=== PATIENT | male | born 1980 | race Caucasian/White ===

== ENCOUNTER 2018-11-16 14:17 | Emergency (ER) | payer OTHER, MEDICAID, SELFPAY ==
[2018-11-16 14:25] VITALS: BP 129/81; PULSE 103; RESP 20; TEMP 36.7; O2SAT 100; BMI 22.6
[2018-11-16 15:26] VITALS: BP 113/80; PULSE 80; RESP 18; O2SAT 99
--- NOTE | 2018-11-16 15:37 | DI.US.S_ITS ---
PROCEDURE: US SCROTUM INDICATIONS: Right testicular pain radiating to the right groin. TECHNIQUE: Real-time scanning was performed of the scrotum and testicles, with image documentation. Color and pulse Doppler interrogation was performed of both testicles. COMPARISON: None. FINDINGS: Right: Testicle is normal in size at 4.9 x 2.3 x 2.8 cm, and homogenous in echotexture. Epididymis is normal in overall size and morphology with mildly heterogeneous echotexture and subtle increased vascularity suggesting mild epididymitis. No varicoceles. Small hydrocele. Overlying scrotal skin is normal in thickness. Left: Testicle is normal in size at 3.1 x 3.1 x 2.2 cm, and homogeneous in echotexture. Epididymis is normal in overall size and morphology. No varicoceles. Small hydrocele Overlying scrotal skin is normal in thickness. Doppler: Color and pulse Doppler demonstrate normal and symmetric arterial flow in both testicles. No right inguinal hernia is identified. Small inguinal lymph nodes are present in the right groin Measuring up to 6 mm in short axis. The lymph nodes demonstrate normal nephrology and fatty hilum. IMPRESSION: 1. Question mild right epididymitis. Recommend clinical correlation. 2. No evidence for testicular torsion. 3. Microlithiasis of the testicles which is a resector for testicular cancer. Recommend routine self examination. 4. No right inguinal hernias. 5. Prominent but still normal-sized right inguinal lymph nodes are noted, most likely reactive. Dictated by: Ryan Cunningham M.D. on 11/16/2018 at 16:16 Approved by: Ryan Cunningham M.D. on 11/16/2018 at 16:23
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
[2018-11-16] MEDS: KETOROLAC 60 MG/2 ML VIAL IM (16:07)
[2018-11-16 17:45] VITALS: BP 122/73; PULSE 72; RESP 18; O2SAT 98
[2018-11-16 17:53] VITALS: TEMP 37.7
[2018-11-16] MEDS: CEFTRIAXONE INJ (18:12)
[2018-11-16] MEDS: LIDOCAINE 1% INJ (18:12)
[2018-11-16] MEDS: AZITHROMYCIN 250 MG TABLET 1000 MG PO (18:12)
[2018-11-16 18:48] VITALS: BP 111/75; PULSE 70; RESP 18; TEMP 36.5; O2SAT 98
== END 2018-11-16 18:53 | disposition home or self-care (01) ==
PROVIDERS: Emergency Provider Emergency Medicine; PCP Family Medicine
DX: N45.1 Epididymitis (principal)
CPT/HCPCS: 76870; 81003; 96365; 96372; 99283; 99284; J0696; J1885

== ENCOUNTER → 2019-01-16 16:24 | Outpatient (CLI) | payer OTHER, MEDICAID, SELFPAY ==
--- NOTE | 2019-01-16 16:28 | DI.MRI.S_ITS ---
PROCEDURE: MR LUMBAR SPINE WO CON INDICATIONS: TESTICULAR PAIN RADICULAR PAIN FROM SPINE TECHNIQUE: Noncontrast sagittal T1 spin echo and T2 fast echo, sagittal STIR, axial T1 and T2 fast spin echo through the lumbar spine. In cases with scoliosis, additional coronal T2 fast spin echo may be performed. COMPARISON: None. FINDINGS: Image quality: Diagnostic, with note made of motion artifact. Alignment and Curvature: There is normal bony alignment. Bone Marrow: Marrow is of normal overall signal. No acute vertebral body compression fractures. Spinal Cord: Conus medullaris terminates at the L1 level. Visualized cord demonstrates normal signal and size. Paraspinous Soft Tissues: No paravertebral masses. T12-L1: Normal appearance. L1-L2: Normal appearance. L2-L3: Normal appearance. L3-L4: Normal appearance. L4-L5: The disc height is well-preserved. Mild loss of disc signal can be seen. Mild to moderate disc bulge is seen. Moderate bilateral neural foraminal narrowing is seen. There is a mild degree of compression seen upon the exiting right L4 nerve root, as on series 3 image 4. Mild to moderate central canal narrowing is seen. L5-S1: No significant abnormality is seen. IMPRESSION: Focal L4-L5 degenerative change is seen, including moderate bilateral neural foraminal narrowing, with associated compression upon the exiting right L4 nerve root. Dictated by: Herbert Soto M.D. on 01/16/2019 at 17:14 Approved by: Herbert Soto M.D. on 01/16/2019 at 17:16
== END ==
PROVIDERS: PCP Family Medicine; Visit Provider Family Medicine
DX: M47.26 Other spondylosis with radiculopathy, lumbar region (principal); N50.819 Testicular pain, unspecified
CPT/HCPCS: 72148

== ENCOUNTER 2020-12-12 11:45 | Observation (INO) | payer OTHER, MEDICAID, SELFPAY ==
[2020-12-12 11:50] VITALS: BP 133/84; PULSE 121; RESP 15; TEMP 36.8; O2SAT 99; BMI 23.7
[2020-12-12 12:10] LABS: Add Manual Diff / Slide Review NO; Basophils Absolute Auto 100 /uL (0-100); Basophils Percent Auto 0.4 % (0-2); Eosinophils Absolute Auto 100 /uL (0-450); Eosinophils Percent Auto 0.6 % (2-4); Hematocrit 43.5 % (41-53); Hemoglobin 14.5 g/dL (13.5-17.5); Lymphocytes Absolute Auto 1800 /uL (1100-4500); Mean Corpuscular HGB Conc 33.4 % (30-36); Mean Corpuscular Hemoglobin 30.5 PG (26-34); Mean Corpuscular Volume 91.5 fL (80-100); Monocytes Absolute Auto 1500 /uL (0-900); Monocytes Percent Auto 11.1 % (3-14); Neutrophils Absolute Auto 9800 /uL (1500-7000); Neutrophils Percent Auto 73.9 % (50-75); Platelet Count 228 X10^3/uL (150-400); Red Blood Cell Count 4.75 X10^6/uL (4.5-5.9); Red Cell Distribution Width 13.7 % (11.6-14.8); White Blood Cell Count 13.2 X10^3/uL (4.5-11.0)
[2020-12-12 12:15] LABS: PTT Partial Thromboplastin Tim 34 SECONDS (26.4-36.2)
[2020-12-12 12:17] LABS: Alanine Aminotransferase 17 IU/L (<50); Albumin 4.5 g/dL (3.5-5.0); Albumin Globulin Ratio 1.3 (1.0-2.8); Alkaline Phosphatase 101 U/L (38-126); Aspartate Aminotransferase 28 IU/L (17-59); Bilirubin Total 0.6 mg/dL (0.2-1.3); Blood Urea Nitrogen 8 mg/dL (9-20); Calcium 9.2 mg/dL (8.4-10.2); Carbon Dioxide 20 mmol/L (22-32); Chloride 102 mmol/L (98-107); Estimated Glomerular Filt Rate > 60.0 mL/min (>60); Globulin 3.4 g/dL (1.7-4.1); Glucose 112 mg/dL (70-100); HEMOLYSIS 25 (0-50); Lipase 44 U/L (23-300); Sodium 133 mmol/L (137-145); Total Protein 7.9 g/dL (6.3-8.2)
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
--- NOTE | 2020-12-12 12:41 | DI.CT.S_ITS ---
PROCEDURE: CT ABDOMEN PELVIS W CON INDICATIONS: increased RLQ pain, ? appy TECHNIQUE: After the administration of intravenous contrast, 5 mm thick sections acquired from the diaphragm to the symphysis. 5 mm coronal and sagittal reformats were acquired. For radiation dose reduction, the following was used: automated exposure control, adjustment of mA and/or kV according to patient size. COMPARISON: None. FINDINGS: ABDOMEN: Lung bases: Normal. Possible sub cm lipoma adjacent to the dome of the diaphragm on image 32/4, technically too small to characterize although doubtful clinical significance. Heart: No significant findings. Liver: Normal. Gallbladder: Negative Bile ducts: Normal. Pancreas: Normal. Spleen: Normal. Adrenals: Normal. Kidneys: Normal. Stomach: Normal. Bowel: There is extensive cecal wall thickening and inflammatory changes within the right pericolic gutter. No discrete abscess or free air is identified. No appendicoliths seen. The appendix appears to contain air within its lumen, which would argue for acute appendicitis although this remains in the differential. Other: No free fluid or air. Numerous colonic diverticuli are present.. Abdominal nodes: Normal. Aorta and IVC: Normal in size. Ventral wall: Tiny periumbilical fat containing hernia. PELVIS: Bladder: Mildly thickened appearance of the bladder wall however this could be due to partial decompression and recommend clinical correlation. Inguinal: No hernia. Pelvic nodes: Normal. Bones: No suspicious bony lesions. No vertebral body compression fractures. IMPRESSION: Extensive right lower quadrant pericecal inflammatory changes. Findings could reflect a right-sided diverticulitis, or infectious/inflammatory right-sided colitis. Appendix demonstrates normal size and intraluminal air which would argue against acute appendicitis however this remains in differential. Colonic neoplasm is statistically much less likely although conceivable. Please correlate clinically and consider surgical consultation. Findings were personally telephoned and discussed with Dr. Quigley in the emergency department at 12/12/20 at 1326 hours. Dictated by: Jason Nieto M.D. on 12/12/2020 at 13:16 Approved by: Jason Nieto M.D. on 12/12/2020 at 13:27
[2020-12-12 12:48] VITALS: PULSE 95; RESP 15; O2SAT 99
[2020-12-12 12:49] VITALS: BP 116/77; PULSE 97; RESP 14; O2SAT 98
[2020-12-12] MEDS: LORazepam 2 MG/ML INJ 0.5 MG IV (12:56)
[2020-12-12] MEDS: PIPERACILLIN-TAZO 4.5 GM/100 ML FROZ.PIGGY IV (12:56)
[2020-12-12] MEDS: SODIUM CHLORIDE 0.9% 1,000 ML 1000 ML IV (12:56)
[2020-12-12 14:10] LABS: COVID19 - ADMIT (NP swab/PCR) Negative (Negative)
--- NOTE | 2020-12-12 15:38 | PM.HP.1 ---
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 He developed lower abdominal pain 4 days ago. There was a component of discomfort in the epigastrium as well and he thought he had gas. However the pain localized to the right lower quadrant right flank area 2 days ago. He was still going to work but today the pain became worse he and he came to the ER thinking he might have appendicitis. He has never had pain like this before. A bit anorexic. Patient History Medical History Fingers fractured Toes fractured Family & Social History Safety & Behavioral: Feels Safe in Current Yes Environment Been Physically Hurt or No Threatened By a Person Tobacco & Substance use: Smoking Status Current some day smoker alcohol intake frequency a few times a week Substance Use Type marijuana Meds Home Medications and Allergies Home Medications Medication Instructions Recorded Confirmed Type acetaminophen-codeine 1 tab PO Q6H PRN #10 tab 11/16/18 Rx [Tylenol-Codeine #3] ibuprofen 800 mg PO TID #14 tab 11/16/18 Rx Allergies Allergy/AdvReac Type Severity Reaction Status Date / Time venom-wasp [wasp venom] Allergy Mild YELLOW Verified 12/12/20 11:54 JACKETS Review of Systems Review of Systems Narrative: Patient denies visual difficulties pain is eyes earache sore throats or trouble swallowing. No tooth aches. No cough cold or asthma. No chest pain heart murmurs or heart problems. No black or bloody bowel movements. He did have blood in his urine a couple months ago and was treated for the urinary problem. He also had testicular pain in the past that caused him to be admitted and it turned out was pain from his back. Patient denies any seizures or blackouts. He was a bit anxious when he came here no depression. He does not take medication for anxiety or depression. No problems with this thyroid or pancreas that he is aware of. No unusual bruising or bleeding. Exam Vital Signs (past 8 hours): - 12/12/20 11:50 12/12/20 12:48 12/12/20 12:49 Temperature 98.2 F Pulse Rate 121 H 95 H 97 H Respiratory Rate 15 15 14 Blood Pressure 133/84 116/77 Pulse Oximetry 99 99 98 Oxygen Delivery Method Room Air Narrative Exam Narrative: Cooperative pleasant gentleman no apparent distress. Looks comfortable. His eyes are nonicteric. Pupils equal small round reactive to light. Oral mucosa is dry no open lesions. Teeth are intact. No nodes in the neck supraclavicular areas. Trachea midline mobile. Lungs are clear to auscultation without rales or rhonchi. Equal percussion. Heart regular rate and rhythm without murmur gallop no heave lift or thrill. Abdomen is flat soft. Localized tenderness in the right lower quadrant right flank area. Mild to moderate. No guarding. Patient is alert and oriented x3. Speech rate and content are appropriate. Affect is appropriate. Extremities without cyanosis clubbing edema or deformity. To 2+ radial pulses. Tattoo on both arms. No lesions of the skin appreciated. Texture and turgor unremarkable. Objective Imaging CT scan - abdomen: My impression: Fairly Normal appearing appendix with air throughout the lumen with inflammation around the cecum. This suggests right-sided diverticulitis. Radiologist's impression: Similar to the above with thickening of the colonic wall. Labs Result Diagrams: 12/12/20 12:00 12/12/20 12:00 Labs: Laboratory Results - last 24 hr 12/12/20 12/12/20 12/12/20 12:00 12:00 12:00 WBC 13.2 H RBC 4.75 Hgb 14.5 Hct 43.5 MCV 91.5 MCH 30.5 MCHC 33.4 RDW 13.7 Plt Count 228 Neut % (Auto) 73.9 Lymph % (Auto) 14.0 L [place] % (Auto) 11.1 Eos % (Auto) 0.6 L Baso % (Auto) 0.4 Neut # (Auto) 9800 H Lymph # (Auto) 1800 [place] # (Auto) 1500 H Eos # (Auto) 100 Baso # (Auto) 100 PT 12.0 INR 1.0 APTT 34 Sodium 133 L Potassium 4.0 Chloride 102 Carbon Dioxide 20 L BUN 8 L Creatinine 0.80 Estimated GFR > 60.0 BUN/Creatinine Ratio 10.0 Glucose 112 H Calcium 9.2 Total Bilirubin 0.6 AST 28 ALT 17 Alkaline Phosphatase 101 Total Protein 7.9 Albumin 4.5 Globulin 3.4 Albumin/Globulin Ratio 1.3 Lipase 44 SARS-CoV-2 (PCR) 12/12/20 13:04 WBC RBC Hgb Hct MCV MCH MCHC RDW Plt Count Neut % (Auto) Lymph % (Auto) [place] % (Auto) Eos % (Auto) Baso % (Auto) Neut # (Auto) Lymph # (Auto) [place] # (Auto) Eos # (Auto) Baso # (Auto) PT INR APTT Sodium Potassium Chloride Carbon Dioxide BUN Creatinine Estimated GFR BUN/Creatinine Ratio Glucose Calcium Total Bilirubin AST ALT Alkaline Phosphatase Total Protein Albumin Globulin Albumin/Globulin Ratio Lipase SARS-CoV-2 (PCR) Negative Assessment & Plan Assessment & Plan narrative: Patient is a gentleman with a 4 day history of abdominal pain. This is unlikely to be from appendicitis given his 4 day history. Lack of inflammation around much of the appendix as well as air within its lumen. It appears the patient may have right-sided diverticulitis however. Otherwise consider local inflammatory disease in the cecum. He does not really have any history of diarrhea or bloody stools. He is otherwise healthy. Recommend broad-spectrum IV antibiotics and hospitalization at this time. Repeat labs tomorrow. Clear liquids.
[2020-12-12 16:50] VITALS: BMI 23.7
[2020-12-12 17:03] VITALS: BP 117/73; PULSE 68; RESP 18; TEMP 36.5; O2SAT 98
[2020-12-12] MEDS: LACTATED RINGERS 1,000 ML 150 ML IV (17:11)
[2020-12-12] MEDS: MORPHINE 4 MG/ML INJ IV ×2 (17:11→21:18)
[2020-12-12] MEDS: KETOROLAC 30 MG/ML VIAL IV (17:34)
[2020-12-12] MEDS: PIPERACILLIN-TAZO 3.375 GM/50 ML FROZ.PIGGY IV (17:34)
--- NOTE | 2020-12-12 18:17 | PC.NURSE ---
Addendum entered by Samreen Hanson R.N. 12/13/20 02:57: Resting quietly in bed with eyes closed. No signs of distress or discomfort. Addendum entered by Samreen Hanson R.N. 12/13/20 01:16: Pt wakens easily to staff entering pt's room. Pt reports was able to sleep and requests scd's be off as pt has turned them off to allow for rest. Admits to abdominal pain 5/10 as pt is palpating own abdomen; right lower. Denies nausea. Inquired of [facility] pharmacist if zosyn can be run with LR and pharmacistMarylin, states indeterminate compatability and recommends not running these together. Normal saline hung for antibiotic infusion and zosyn running over 4 hours as ordered. Encouraged pt to call for needs/wants. Addendum entered by Samreen Hanson R.N. 12/12/20 22:18: States abdominal pain increasing again to 7/10. Administered morphine as per emar. Taking oral fluids well. Original Note: Pt to room 212 from E.R. via wheelchair. Pt is calm, cooperative, and participatory in admission process. Admits to increasing pain RLQ 7/10. Abdomen is puffy and distended, but soft. Discussion with pt re choices for pain medications. Administered morphine and toradol as per emar with good relief. Pt denies nausea. Clear liquid diet. BL calf scd's placed. Pt was cautioned not to attempt out of bed without calling for staff assistance d/t sedating effects of narcotics. Pt declines to secure wallet in safe and states preference is to keep in room. Clarification with pharmacistMaryann, to hang 1700 antibiotic despite receiving dose in E.R. earlier today.
[2020-12-12 20:29] VITALS: BP 115/62; PULSE 70; RESP 18; TEMP 36.4; O2SAT 100
[2020-12-12] MEDS: GABAPENTIN 300 MG CAPSULE PO (21:16)
[2020-12-13] MEDS: PIPERACILLIN-TAZO 3.375 GM/50 ML FROZ.PIGGY IV ×3 (00:59→17:07)
[2020-12-13 01:02] VITALS: BP 111/71; PULSE 55; RESP 18; TEMP 36.8; O2SAT 99
[2020-12-13 05:00] VITALS: BP 111/65; PULSE 64; RESP 18; TEMP 36.5; O2SAT 99
[2020-12-13] MEDS: MORPHINE 4 MG/ML INJ IV (05:26)
[2020-12-13 05:44] LABS: Add Manual Diff / Slide Review NO; Basophils Absolute Auto 0 /uL (0-100); Basophils Percent Auto 0.7 % (0-2); Eosinophils Absolute Auto 300 /uL (0-450); Eosinophils Percent Auto 3.5 % (2-4); Hematocrit 39.5 % (41-53); Hemoglobin 13.9 g/dL (13.5-17.5); Lymphocytes Absolute Auto 1900 /uL (1100-4500); Lymphocytes Percent Auto 26.5 % (25-40); Mean Corpuscular HGB Conc 35.3 % (30-36); Mean Corpuscular Hemoglobin 32.3 PG (26-34); Mean Corpuscular Volume 91.6 fL (80-100); Monocytes Absolute Auto 700 /uL (0-900); Monocytes Percent Auto 10.4 % (3-14); Neutrophils Absolute Auto 4200 /uL (1500-7000); Neutrophils Percent Auto 58.9 % (50-75); Platelet Count 192 X10^3/uL (150-400); Red Blood Cell Count 4.31 X10^6/uL (4.5-5.9); Red Cell Distribution Width 13.7 % (11.6-14.8); White Blood Cell Count 7.1 X10^3/uL (4.5-11.0)
[2020-12-13] MEDS: KETOROLAC 30 MG/ML VIAL IV ×2 (07:00→12:02)
[2020-12-13 09:00] VITALS: BP 120/75; PULSE 65; RESP 16; TEMP 36.3; O2SAT 98
[2020-12-13] MEDS: ENOXAPARIN 40 MG/0.4 ML SYRINGE SUBCUT (09:58)
[2020-12-13] MEDS: GABAPENTIN 300 MG CAPSULE PO ×2 (09:58→20:02)
--- NOTE | 2020-12-13 11:00 | P.PN_ITS ---
Subjective Subjective Date Patient Seen: 12/13/20 Time Patient Seen: 11:00 Interval history: Patient is a gentleman admitted with right-sided diverticulitis. He is still feeling sore. Not a whole lot different than yesterday. Feels like he needs to move his bowels. He has passed some flatus. Small amount. Exam Vital Signs (past 8 hours): - 12/13/20 05:00 12/13/20 09:00 Temperature 97.7 F 97.3 F L Pulse Rate 64 65 Respiratory Rate 18 16 Blood Pressure 111/65 120/75 Pulse Oximetry 99 98 Oxygen Delivery Method Room Air Oxygen Flow Rate 0 Narrative Exam Narrative: Abdomen is soft. He still has tenderness right lower quadrant right flank. Temp curve is down. Lungs are clear to auscultation no rales or rhonchi. Heart regular rate and rhythm without murmur gallop. Objective Labs Result Diagrams: 12/13/20 05:06 12/12/20 12:00 Labs: Laboratory Results - last 24 hr 12/12/20 12/12/20 12/12/20 12:00 12:00 12:00 WBC 13.2 H RBC 4.75 Hgb 14.5 Hct 43.5 MCV 91.5 MCH 30.5 MCHC 33.4 RDW 13.7 Plt Count 228 Neut % (Auto) 73.9 Lymph % (Auto) 14.0 L [place] % (Auto) 11.1 Eos % (Auto) 0.6 L Baso % (Auto) 0.4 Neut # (Auto) 9800 H Lymph # (Auto) 1800 [place] # (Auto) 1500 H Eos # (Auto) 100 Baso # (Auto) 100 PT 12.0 INR 1.0 APTT 34 Sodium 133 L Potassium 4.0 Chloride 102 Carbon Dioxide 20 L BUN 8 L Creatinine 0.80 Estimated GFR > 60.0 BUN/Creatinine Ratio 10.0 Glucose 112 H Calcium 9.2 Total Bilirubin 0.6 AST 28 ALT 17 Alkaline Phosphatase 101 Total Protein 7.9 Albumin 4.5 Globulin 3.4 Albumin/Globulin Ratio 1.3 Lipase 44 SARS-CoV-2 (PCR) 12/12/20 12/13/20 13:04 05:06 WBC 7.1 RBC 4.31 L Hgb 13.9 Hct 39.5 L MCV 91.6 MCH 32.3 MCHC 35.3 RDW 13.7 Plt Count 192 Neut % (Auto) 58.9 Lymph % (Auto) 26.5 [place] % (Auto) 10.4 Eos % (Auto) 3.5 Baso % (Auto) 0.7 Neut # (Auto) 4200 Lymph # (Auto) 1900 [place] # (Auto) 700 Eos # (Auto) 300 Baso # (Auto) 0 PT INR APTT Sodium Potassium Chloride Carbon Dioxide BUN Creatinine Estimated GFR BUN/Creatinine Ratio Glucose Calcium Total Bilirubin AST ALT Alkaline Phosphatase Total Protein Albumin Globulin Albumin/Globulin Ratio Lipase SARS-CoV-2 (PCR) Negative [facility] Medical History Fingers fractured Toes fractured Social History household members: spouse and children Smoking Status: Current some day smoker alcohol intake: current Assessment & Plan Assessment & Plan narrative: White blood cell count has improved. It is now normal with a normal diff. he is centerless grinder tender however and has not had real return of bowel function. Will give him a suppository. Continue broad-spectrum antibiotics. Quality VTE Deep Vein Thrombosis/Pulmonary Embolism Present on Admission: No
[2020-12-13] MEDS: HYDROMORPHONE 2 MG INJ IV (12:01)
[2020-12-13 13:00] VITALS: BP 119/63; PULSE 98; RESP 18; TEMP 36.3; O2SAT 98
--- NOTE | 2020-12-13 13:13 | PC.NURSE ---
Assess- Patient complains of pain to his r.side of abdomen. Given dilaudid 2mg iv and toradol together and he states that this has been helpful. Up in the chair now. wrote orders for a supository but patient had a medium loose stool about 45 minutes ago. He would like to hold off on this now. Bowel tones are positive x4, hyperactive. Patient is tolerating clear liquids well and denies any nausea.
[2020-12-13] MEDS: BISACODYL 10 MG SUPP PR (15:56)
[2020-12-13 16:25] VITALS: BP 102/61; PULSE 58; RESP 16; TEMP 36.4; O2SAT 96
[2020-12-13] MEDS: LACTATED RINGERS 1,000 ML 150 ML IV (17:09)
[2020-12-13 20:28] VITALS: BP 116/77; PULSE 82; RESP 17; TEMP 36.8; O2SAT 99
[2020-12-14 00:35] VITALS: BP 117/76; PULSE 67; RESP 18; TEMP 36.3; O2SAT 100
[2020-12-14] MEDS: KETOROLAC 30 MG/ML VIAL IV ×2 (00:43→09:01)
[2020-12-14] MEDS: PIPERACILLIN-TAZO 3.375 GM/50 ML FROZ.PIGGY IV ×2 (00:44→09:01)
[2020-12-14 05:00] VITALS: BP 122/74; PULSE 70; RESP 18; TEMP 36.6; O2SAT 99
[2020-12-14 06:21] LABS: Add Manual Diff / Slide Review NO; Basophils Absolute Auto 0 /uL (0-100); Basophils Percent Auto 0.8 % (0-2); Eosinophils Absolute Auto 200 /uL (0-450); Eosinophils Percent Auto 3.9 % (2-4); Hematocrit 38.2 % (41-53); Hemoglobin 13.2 g/dL (13.5-17.5); Lymphocytes Absolute Auto 1400 /uL (1100-4500); Lymphocytes Percent Auto 25.7 % (25-40); Mean Corpuscular HGB Conc 34.5 % (30-36); Mean Corpuscular Hemoglobin 31.7 PG (26-34); Mean Corpuscular Volume 91.8 fL (80-100); Monocytes Absolute Auto 600 /uL (0-900); Monocytes Percent Auto 11.1 % (3-14); Neutrophils Absolute Auto 3300 /uL (1500-7000); Neutrophils Percent Auto 58.5 % (50-75); Platelet Count 201 X10^3/uL (150-400); Red Blood Cell Count 4.16 X10^6/uL (4.5-5.9); Red Cell Distribution Width 13.7 % (11.6-14.8); White Blood Cell Count 5.6 X10^3/uL (4.5-11.0)
[2020-12-14] MEDS: HYDROMORPHONE 2 MG INJ IV (06:30)
[2020-12-14] MEDS: LORazepam 2 MG/ML INJ 1 MG IV (06:32)
[2020-12-14 09:00] VITALS: BP 112/67; PULSE 66; RESP 18; TEMP 36.8; O2SAT 98
[2020-12-14] MEDS: GABAPENTIN 300 MG CAPSULE PO (09:01)
[2020-12-14] MEDS: ENOXAPARIN 40 MG/0.4 ML SYRINGE SUBCUT (09:01)
--- NOTE | 2020-12-14 11:13 | P.PN_ITS ---
Subjective Subjective Date Patient Seen: 12/14/20 Time Patient Seen: 11:13 Interval history: no acute events. Tolerating liquid diet. Minimal abdominal pain improved over the past 24 hrs significantly. Exam Vital Signs (past 8 hours): - 12/14/20 05:00 12/14/20 09:00 Temperature 97.8 F 98.2 F Pulse Rate 70 66 Respiratory Rate 18 18 Blood Pressure 122/74 112/67 Pulse Oximetry 99 98 Oxygen Delivery Method Room Air Oxygen Flow Rate 0 Narrative Exam Narrative: gen-adult male alert and no distress abdomen-soft non tender Objective Labs Result Diagrams: 12/14/20 05:52 12/12/20 12:00 Labs: Laboratory Results - last 24 hr 12/14/20 05:52 WBC 5.6 RBC 4.16 L Hgb 13.2 L Hct 38.2 L MCV 91.8 MCH 31.7 MCHC 34.5 RDW 13.7 Plt Count 201 Neut % (Auto) 58.5 Lymph % (Auto) 25.7 [place] % (Auto) 11.1 Eos % (Auto) 3.9 Baso % (Auto) 0.8 Neut # (Auto) 3300 Lymph # (Auto) 1400 [place] # (Auto) 600 Eos # (Auto) 200 Baso # (Auto) 0 PFSH Medical History Fingers fractured Toes fractured Social History household members: spouse and children Smoking Status: Current some day smoker alcohol intake: current Assessment & Plan Assessment & Plan narrative: 39M with acute diverticulitis without abscess or perforation. Abdominal pain and leukocytosis resolved -Advance diet to regular -If tolerates regular diet can discharge today on Levaquin and Flagyl x 10 days -SCDs Quality VTE Deep Vein Thrombosis/Pulmonary Embolism Present on Admission: No
--- NOTE | 2020-12-14 11:54 | PC.NURSE ---
Patient is feeling better today, given toradol for pain and helpful. He will be going home today if he is able to tolerated a general diet. Patient will be taking the taxi to [place] and then to [email or web address].
--- NOTE | 2020-12-14 12:39 | CM.DANOTE ---
Addendum entered by Donna Tim LPN 12/14/20 13:12: Confirmed pt sees a PCP at the [facility]. The clinic is in process of change in management and he says he will know who is new PCP is by next week. Original Note: Discharge Planning/Care Management DCPlan assessment note: Case received, EMR reviewed and case discussed in Team Rounds yesterday and today. Met then today with pt to continue the assessment process. Introduced self and role. Pt is a 39 year old male who admitted late afternoon 12/12 to care of [facility]. Payer: [employer]/Medicaid Admission status: OBS : Confirmed by UR STORM Motta. Pt is being treated for diverticulitis and has been on IV antibiotics. Dr. Monroy was here earlier and told pt that if he tolerates a general diet at lunch he will let him go home and he will continue on oral antibiotics. A dc order is in place and Dr. Monroy, after discussion with pt, has sent the medication orders [facility] in [place]. Pt does wonder if he should also have the gabapentin as the doctor had told me it is not a narcotic but helps with pain and also reduces the swelling. Agreed to alert his RN Lanie who says she will call Dr. Monroy and ask him. Pt says he is aware of the [employer] taxi free service directly to the [facility] (he and his family live in [place] on [address]) but that since he needs to go first to [facility] to cook pickled meat his medications he is planning to use an uber or taxi and pay this himself. Said he would set this up himself now. WIRELINE SUPERVISOR will set up priority board. P: home today. Advanced directive, confirm from FAMILY Start: 12/12/20 17:00 Freq: Q24H Status: Active Protocol: Document 12/13/20 17:00 AKP (Rec: 12/13/20 17:13 AKP [id number]) Advance Directive, confirm on record Time 17:13 Person contacted pt does not have one. Copy received No Advanced directive available on record No CM Discharge Assessment Start: 12/14/20 12:36 Freq: Status: Active Protocol: Document 12/14/20 12:36 ITV (Rec: 12/14/20 12:39 ITV [id number]) Discharge Planning Assessment Advance Directives? No History Provided By Patient,Medical Record Prior Living Arrangements House Household Members spouse,children Independent with ADL's Yes Is patient alert and oriented? Yes Discharge Plan Home Transportation Arrangement taxi to pharmacy/[employer] [place] prefers to set up his own ride via taxi or uber and is setting this up now.
[2020-12-14 13:00] VITALS: BP 118/81; PULSE 70; RESP 18; TEMP 36.6; O2SAT 100
--- NOTE | 2020-12-16 08:44 | PM.DS.1 ---
History of Present Illness History of Present Illness Date Patient Seen: 12/16/20 Time Patient Seen: 08:44 Chief complaint: Abdominal pain, r/o appendicitis Narrative: 31-year-old male presented to the emergency room with abdominal pain and leukocytosis. CT abdomen pelvis demonstrates diverticulitis without abscess. Discharge Providers Provider Date of admission: 12/12/20 15:28 Discharge Date: 12/14/20 Consults: 12/12/20 16:49 Consult to Discharge Planning Routine Comment: Discharge provider: Alex Monroy MD Summary Hospital Course Discharge Diagnosis: Diverticulitis Hospital Course: Patient was admitted to the hospital for management of acute diverticulitis. He received Zosyn and bowel rest. Leukocytosis resolved his diet was gradually reintroduced. On the date of discharge he is afebrile without leukocytosis or abdominal pain tolerating regular diet. He will be discharged home on a course of levofloxacin and Flagyl. Exam Vital Signs (past 8 hours): Oxygen Delivery Method Room Air Oxygen Flow Rate 0 Narrative Exam Narrative: General adult male alert oriented no acute distress Abdomen soft nontender nondistended Extremities warm well perfused. Objective Labs Result Diagrams: 12/14/20 05:52 12/12/20 12:00 PFSH Medical History Fingers fractured Toes fractured Social History household members: spouse and children Smoking Status: Current some day smoker alcohol intake: current Discharge Plan Discharge Plan Patient Disposition: Home Discharge orders & Medications Prescriptions: New ibuprofen 200 mg tablet 400 mg PO Q6H Qty: 60 RF: 0 acetaminophen [Tylenol] 325 mg capsule 650 mg PO QID PRN (Reason: pain) Qty: 60 RF: 0 levofloxacin 750 mg tablet 750 mg PO DAILY Qty: 10 RF: 0 metronidazole [Flagyl] 500 mg tablet 500 mg PO TID Qty: 30 RF: 0 Continued cetirizine [Zyrtec] 10 mg Tablet 10 mg PO DAILY RF: 0 No Action amoxicillin-pot clavulanate [Augmentin] 875-125 mg tablet 1 tab PO Q12H Qty: 14 RF: 0 tramadol 50 mg tablet 50 mg PO Q6H PRNRF: 0 Follow up/Referrals: Garett Salcedo MD [Physician] - 2 Weeks Diet/Activity/Treatments Diet: Regular Activity: as tolerated Skin/Wound/Dressing Care Report to your healthcare provider any signs of infection, such as:: chills, fever, night sweats and increased pain Visit Report/Discharge Packet Instructions: Acetaminophen, Ibuprofen, Metronidazole, Levofloxacin Discharge Data Attending Provider: Garett Salcedo Quality VTE Deep Vein Thrombosis/Pulmonary Embolism Present on Admission: No
== END 2020-12-14 14:35 | disposition home or self-care (01) ==
LOC: ED 12:33 → AC 16:13
PROVIDERS: Admitting Provider Specialist; Emergency Provider Emergency Medicine; Referring Provider Emergency Medicine; Visit Provider Specialist
DX: K57.32 Diverticulitis of large intestine without perforation or abscess without bleeding (principal); F17.210 Nicotine dependence, cigarettes, uncomplicated; Z20.822 Contact with and (suspected) exposure to COVID-19
CPT/HCPCS: 36415; 74177; 80053; 81003; 83690; 85025; 85610; 85730; 87040; 87635; 96361; 96365; 96366; 96372; 96375; 96376; 99217; 99218; 99224; 99284; C9803; G0378; J1170; J1650; J1885; J2060; J2270; J2543; Q9967

== ENCOUNTER → 2023-11-14 09:50 | Outpatient (CLI) | payer OTHER, MEDICAID, SELFPAY ==
[2021-01-07 10:12] VITALS: BMI 23.7
[2023-11-14 18:57] LABS: Add Manual Diff / Slide Review NO; Basophils Absolute Auto 0 /uL (0-100); Basophils Percent Auto 0.3 % (0-2); Eosinophils Absolute Auto 200 /uL (0-450); Eosinophils Percent Auto 2.6 % (2-4); Hematocrit 42.4 % (41-53); Hemoglobin 14.4 g/dL (13.5-17.5); Lymphocytes Absolute Auto 1400 /uL (1100-4500); Lymphocytes Percent Auto 20.8 % (25-40); Mean Corpuscular HGB Conc 33.9 % (30-36); Mean Corpuscular Hemoglobin 30.5 PG (26-34); Monocytes Absolute Auto 800 /uL (0-900); Monocytes Percent Auto 11.4 % (3-14); Neutrophils Absolute Auto 4300 /uL (1500-7000); Neutrophils Percent Auto 64.9 % (50-75); Platelet Count 250 X10^3/uL (150-400); Red Blood Cell Count 4.71 X10^6/uL (4.5-5.9); Red Cell Distribution Width 13.1 % (11.6-14.8); White Blood Cell Count 6.7 X10^3/uL (4.5-11.0)
[2023-11-14 19:07] LABS: Alanine Aminotransferase 19 IU/L (<50); Albumin 4.1 g/dL (3.5-5.0); Albumin Globulin Ratio 1.4 (1.0-2.8); Alkaline Phosphatase 64 U/L (38-126); Aspartate Aminotransferase 27 IU/L (17-59); BUN Creatinine Ratio 13.5 (6-22); Bilirubin Total 0.6 mg/dL (0.2-1.3); Blood Urea Nitrogen 10 mg/dL (9-20); Calcium 9.3 mg/dL (8.4-10.2); Carbon Dioxide 23 mmol/L (22-32); Chloride 106 mmol/L (98-107); Estimated Glomerular Filt Rate > 60 mL/min (>60); Glucose 94 mg/dL (70-100); HEMOLYSIS 17 (0-50); Sodium 136 mmol/L (137-145); Total Protein 7.1 g/dL (6.3-8.2)
== END ==
PROVIDERS: PCP Family Medicine; Visit Provider Family Medicine
DX: K57.92 Diverticulitis of intestine, part unspecified, without perforation or abscess without bleeding (principal)
CPT/HCPCS: 80053; 85025

== ENCOUNTER → 2023-11-30 13:03 | Outpatient (CLI) | payer OTHER, MEDICAID, SELFPAY ==
[2021-01-07 10:12] VITALS: BMI 23.7
--- NOTE | 2023-11-30 13:05 | DI.CT.S_ITS ---
PROCEDURE: CT ABDOMEN PELVIS W CON INDICATIONS: recurrent diverticulitis. sig LLQ pain TECHNIQUE: After the administration of intravenous contrast, axial sections acquired from the lung bases to the pubic symphysis. Coronal and sagittal reformats were performed. For radiation dose reduction, the following was used: automated exposure control, adjustment of mA and/or kV according to patient size. COMPARISON: [facility], CT, CT ABDOMEN PELVIS W CON, 12/12/2020, 13:02. FINDINGS: Image quality: Diagnostic. Lower Chest: No significant findings. ABDOMEN: Liver: No solid mass. Gallbladder: No radiopaque gallstones or wall thickening. Biliary ducts: No biliary dilation. Pancreas: No ductal dilation. Spleen: Size is within normal limits. There is a 1 cm hypodense nodule in the inferior aspect of the spleen, unchanged. Adrenal Glands: No adrenal nodules. Kidneys and Ureters: No hydronephrosis. No solid mass. A 1.2 cm simple cyst is noted in the right kidney. No complex renal cystic lesion which requires follow up. Stomach and Bowel: Normal small bowel and colonic caliber. There are scattered colonic diverticula. Mild thickening in the descending and sigmoid colon. Subtle stranding in the descending colon. Normal appendix. Peritoneum: No abnormal intraperitoneal fluid. No free air. Ventral Wall: No significant ventral hernia. Abdominal Nodes: No retroperitoneal or mesenteric adenopathy by size criteria. Vessels: Aorta and inferior vena cava are normal in size. PELVIS: Pelvic Organs: Unremarkable. Bladder: No bladder wall thickening, accounting for underdistention. Pelvic Nodes: No enlarged lymph nodes. Miscellaneous: No inguinal hernias are seen. Bones: No aggressive osseous abnormality. IMPRESSION: 1. Diverticulosis. There is mild thickening involving the descending sigmoid colon with subtle stranding in the descending colon. Differential diagnoses are diverticulitis versus colitis. 2. No findings to suggest diverticular perforation. No diverticular abscess. 3. A 1 cm low-density nodule in the inferior aspect of spleen, unchanged, probably a cyst hemangioma. Dictated by: Ryan Cunningham M.D. on 11/30/2023 at 14:59 Approved by: Ryan Cunningham M.D. on 11/30/2023 at 15:09
== END ==
LOC: CT 13:04
PROVIDERS: PCP Family Medicine; Referring Provider Family Medicine; Visit Provider Family Medicine
DX: K57.30 Diverticulosis of large intestine without perforation or abscess without bleeding (principal); N28.1 Cyst of kidney, acquired; D73.9 Disease of spleen, unspecified
CPT/HCPCS: 74177; Q9967